=== PATIENT | female | born 1995 | race Caucasian/White ===

== ENCOUNTER 2025-10-18 14:23 | Emergency (ER) | payer OTHER ==
[~2025-10-18] VITALS: Ht 162.6 cm; Wt 74.0 kg
[2025-10-18 15:00] VITALS: BP 120/74; PULSE 90; RESP 18; TEMP 98.4; O2SAT 99
[2025-10-18 15:16] LABS: COVID AG,FIA SOURCE NASAL SWAB
[2025-10-18] MEDS ORDERED: AMOX875T2 PO (15:31)
[2025-10-18 15:44] LABS: INFLUENZA TYPE A NEGATIVE FOR TYPE A (NEGATIVE); INFLUENZA TYPE B NEGATIVE FOR TYPE B (NEGATIVE); SARS-COV2 (COVID) ANTIGEN,FIA Negative (Negative)
== END 2025-10-18 16:31 | disposition home or self-care (01) ==
LOC: EMS 14:23
DX: H66.92 Otitis media, unspecified, left ear (principal); R05.9 Cough, unspecified; R51.9 Headache, unspecified; Z20.822 Contact with and (suspected) exposure to COVID-19
CPT/HCPCS: 87804; 99283